=== PATIENT | male | born 1965 | race Caucasian/White ===

== ENCOUNTER 2021-02-09 12:12 | Day surgery (SDC) | payer OTHER ==
[~2021-02-09] VITALS: Ht 198.1 cm; Wt 103.1 kg
[2021-02-09] VITALS (10 sets, daily range): BP systolic 106–129; BP diastolic 61–83
[2021-02-09] MEDS ORDERED: SACU1TAB7 PO (12:40)
[2021-02-09] MEDS ORDERED: MELO-102 PO (12:47)
[2021-02-09] MEDS ORDERED: BACL20TA PO (12:47)
[2021-02-09] MEDS ORDERED: MULT-1085 PO (12:47)
[2021-02-09] MEDS ORDERED: ATOR40TA72 PO (12:47)
[2021-02-09] MEDS ORDERED: NAPR220T67 PO (12:47)
[2021-02-09] MEDS ORDERED: ASPI-1265 PO (12:47)
[2021-02-09] MEDS ORDERED: normal saline 1000ml 1,000 ML IV SCH (12:50)
[2021-02-09] MEDS ORDERED: cefazolin/dext.iso 2gm/100ml 100 ML IV ONE (13:00)
[2021-02-09] MEDS ORDERED: LIDOcaine 1% W/epiNEPHrine 1:100,000 20ml vial ONE ×2 (13:43→14:20)
[2021-02-09] MEDS ORDERED: ceFAZolin 1000mg inj ONE (13:43)
[2021-02-09] MEDS ORDERED: midazolam 1 mg/ML 2ml injection ONE ×2 (13:43→14:21)
[2021-02-09] MEDS ORDERED: fentaNYL/PF 50MCG/1 ML 2ML syringe ONE ×2 (13:43→14:21)
[2021-02-09] MEDS ORDERED: proCHLORperazine 10 MG/2 ml inj ONE (14:19)
[2021-02-09] MEDS ORDERED: LORazepam 1 MG tablet PO PRN (15:20)
[2021-02-09] MEDS ORDERED: HYDROcodone/acetaminophen 10/325mg tab PO PRN (15:20)
[2021-02-09] MEDS ORDERED: HYDROcodone/acetaminophen 5mg/325mg tablet PO PRN (15:20)
== END 2021-02-09 17:10 | disposition home or self-care (01) ==
LOC: SSTAY O 12:12
PROVIDERS: ATTEND Internal Medicine Interventional Cardiology
DX: I42.0 Dilated cardiomyopathy (principal); I50.22 Chronic systolic (congestive) heart failure; I48.91 Unspecified atrial fibrillation; Z87.891 Personal history of nicotine dependence; Z79.82 Long term (current) use of aspirin; Z79.899 Other long term (current) drug therapy; Z83.3 Family history of diabetes mellitus
CPT/HCPCS: 33249; 99152; 99153; C1721; C1895; J0690; J0780; J2250; J3010; J7030; A4620; A6258